=== PATIENT | female | born 1950 | race American Indian/Alaskan Native ===

== ENCOUNTER 2017-08-21 07:13 | Emergency (ER) | payer MEDICARE ==
[2017-08-21 07:33] VITALS: BP 134/77
--- NOTE | 2017-08-21 08:04 | XRay Report ---
ROUTINE CHEST, TWO VIEWS: HISTORY: Shortness of breath. The trachea, heart, mediastinal contour, lung bocanegra and bony thorax are unremarkable. IMPRESSION: No acute cardiopulmonary process identified.
[2017-08-21 08:09] LABS: Basophils % (Auto) 0.6 % (0.0-1.8); Eosinophils % (Auto) 1.3 % (0.0-4.3); Hematocrit 43.1 % (30.3-42.9); Hemoglobin 13.7 gm/dl (10.1-14.3); Mean Corpuscular HGB Conc 32 % (30-34); Mean Corpuscular Hemoglobin 28 pg (28-32); Mean Corpuscular Volume 88 fl (79-97); Platelet Count 250 K/mm3 (140-440); Red Blood Count 4.88 M/mm3 (3.65-5.03); Red Cell Distribution Width 15.1 % (13.2-15.2); White Blood Count 11.5 K/mm3 (4.5-11.0)
[2017-08-21 08:20] LABS: Anion Gap 20 mmol/L; BUN/Creatinine Ratio 17; Blood Urea Nitrogen 10 mg/dL (7-17); Calcium 10.1 mg/dL (8.4-10.2); Carbon Dioxide 22 mmol/L (22-30); Chloride 103.3 mmol/L (98-107); Glucose 170 mg/dL (65-100); Potassium 3.9 mmol/L (3.6-5.0); Sodium 141 mmol/L (137-145)
--- NOTE | 2017-08-21 11:41 | Emergency Department Report ---
HPI - General Chief Complaint: Dyspnea/Respdistress Time Seen by Provider: 08/21/17 10:35 - HPI HPI: Almanza 26 The patient is a 67-year-old female presenting with a chief complaint of shortness of breath. She states she began having an asthma attack last night it worsened severely this morning. Patient complains of severe shortness of breath and EMS was called. Patient was administered albuterol by EMS en route and she currently states she feels much better. Patient currently denies shortness of breath but states she has a sore throat. Patient did not believe she's been coughing but visited her at bedside states patient has been coughing while sleeping in the emergency department. Patient denies any history of fever. 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" - Surgical History Past Surgical History?: Yes Additional Surgical History: Knee replacement, Hernia repair, trach - Family History Family history: no significant - Social History Smoking Status: Never Smoker Substance Use Type: None - Medications Home Medications: Home Medications Medication Instructions Recorded Confirmed Last Taken Type Prednisone [predniSONE 10 mg 10 mg PO .TAPER #1 tab.ds.pk 08/21/17 Unknown Rx (6-Day Pack, 21 Tabs)] ED Review of Systems ROS: Stated complaint: PAM Other details as noted in HPI Constitutional: denies: fever Eyes: denies: eye pain ENT: throat pain Respiratory: cough, shortness of breath, wheezing Cardiovascular: denies: chest pain Gastrointestinal: denies: abdominal pain Genitourinary: denies: dysuria Neurological: denies: headache Physical Exam - Physical Exam Vital Signs: Vital Signs 08/21/17 08/21/17 07:26 09:40 Temperature 98.7 F Pulse Rate 102 H Respiratory 20 16 Rate Blood Pressure 134/77 O2 Sat by Pulse 97 100 Oximetry Physical Exam: GENERAL: The patient is well-developed well-nourished female lying on stretcher not appearing to be in acute distress. [] HEENT: Normocephalic. Atraumatic. Extraocular motions are intact. Patient has moist mucous membranes. Oropharynx clear NECK: Supple. No meningitic signs are noted. There is no stridor CHEST/LUNGS: Clear to auscultation. There is no respiratory distress noted. HEART/CARDIOVASCULAR: Regular. There is no tachycardia. There is no gallop rub or murmur. ABDOMEN: Abdomen is soft, nontender. Patient has normal bowel sounds. There is no abdominal distention. SKIN: There is no rash. There is trace bilateral lower extremity edema. There is no diaphoresis. NEURO: The patient is awake, alert, and oriented. The patient is cooperative. The patient has normal speech MUSCULOSKELETAL: There is no evidence of acute injury. ED Course Vital Signs 08/21/17 08/21/17 07:26 09:40 Temperature 98.7 F Pulse Rate 102 H Respiratory 20 16 Rate Blood Pressure 134/77 O2 Sat by Pulse 97 100 Oximetry ED Medical Decision Making - Lab Data Result diagrams: 08/21/17 07:49 08/21/17 07:49 Laboratory Tests 08/21/17 08/21/17 07:49 07:49 WBC 11.5 H RBC 4.88 Hgb 13.7 Hct 43.1 H MCV 88 MCH 28 MCHC 32 RDW 15.1 Plt Count 250 Lymph % (Auto) 10.2 L [place] % (Auto) 6.8 Eos % (Auto) 1.3 Baso % (Auto) 0.6 Lymph # 1.2 [place] # 0.8 Eos # 0.2 Baso # 0.1 Seg Neutrophils % 81.1 H Seg Neutrophils # 9.4 H Sodium 141 Potassium 3.9 Chloride 103.3 Carbon Dioxide 22 Anion Gap 20 BUN 10 Creatinine 0.6 L Estimated GFR > 60 BUN/Creatinine Ratio 17 Glucose 170 H Calcium 10.1 Troponin T < 0.010 - EKG Data -: EKG Interpreted by Me EKG shows normal: sinus rhythm Rate: normal - EKG Data When compared to previous EKG there are: previous EKG unavailable Interpretation: nonspecific ST-T wave dago (biphasic T-wave in lead aVL) - Radiology Data Radiology results: image reviewed (chest x-ray, lateral soft tissue neck x-ray) interpreted by me: Chest x-ray-no focal infiltrates, no pneumothorax Lateral soft tissue neck x-ray-no prevertebral swelling, no evidence of epiglottitis - Differential Diagnosis acute asthma exacerbation, pharyngitis, epiglottitis Critical care attestation.: If time is entered above; I have spent that time in minutes in the direct care of this critically ill patient, excluding procedure time. ED Disposition Clinical Impression: Acute asthma exacerbation, Shortness of breath Disposition: TO HOME OR SELFCARE Is pt being admited?: No Does the pt Need Aspirin: No Condition: Stable Instructions: Asthma (ED) Additional Instructions: Return to the emergency department immediately should you develop worsening symptoms, fever, inability to tolerate food or liquid or any other concerns. Prescriptions: Prednisone [predniSONE 10 mg (6-Day Pack, 21 Tabs)] 10 mg PO .TAPER #1 tab.ds.pk Referrals: PRIMARY CARE, [Primary Care Provider] - 3-5 Days Time of Disposition: 12:27
[2017-08-21] MEDS ORDERED: DELTASONE PO ONE (11:43)
--- NOTE | 2017-08-21 12:27 | XRay Report ---
AP AND LATERAL SOFT TISSUES OF THE NECK: History: Sore throat. The contour of the upper airway appears within normal limits. The epiglottis is not enlarged. No prevertebral soft tissue swelling is apparent. No mass density or foreign body is evident. IMPRESSION: Unremarkable exam.
== END 2017-08-21 12:31 | disposition home or self-care (01) ==
LOC: ED 07:13
DX: J45.901 Unspecified asthma with (acute) exacerbation (principal); I10 Essential (primary) hypertension; Z86.73 Personal history of transient ischemic attack (TIA), and cerebral infarction without residual deficits; Z96.659 Presence of unspecified artificial knee joint; Z91.041 Radiographic dye allergy status
CPT/HCPCS: 36415; 70360; 71020; 80048; 84484; 85025; 93005; 93010; 99284; J7512

== ENCOUNTER 2017-10-30 08:18 | Outpatient (CLI) | payer MEDICARE ==
--- NOTE | 2017-10-30 09:40 | Mammography Report ---
BONE DEXA:10/30/17 08:18:00 CLINICAL: Postmenopausal. No comparison. TECHNIQUE: Two site bone DEXA performed on an Hologic scanner. FINDINGS: The average BMD of the lumbar spine L1-L4 is 1.123g/cm squared with a T-score of -0.2 and a Z-score of +2.0. The average BMD of the left hip is 0.756g/cm squared with a T-score of -1.8 and a Z-score of by 0.7. IMPRESSION: 1. WHO classification: Normal with average fracture risk based on lumbar spine measurements. 2. WHO classification: Osteopenia with increased fracture risk based on left hip measurements. RECOMMENDATION: Clinical correlation and routine screening. DEFINITIONS: BMD = Bone Mineral Density T-score = BMD related to mean peak bone mass of young adult (mean expressed in Standard Deviation) Z-score = Age matched BMD expressed in SD World Health Organization (WHO) Diagnostic Criteria Normal T-score > -1 SD Osteopenia T-score between -1 and -2.4 SD Osteoporosis T-score -2.5 SD or below NOTE: BMD is not the only risk factor for fracture. One should also consider factors such as the patient's age, risk of falling, previous osteoporotic fracture, family history of osteoporotic fractures, current smoker, and low body weight. Z-scores are not calculated if >80 years of age.
== END 2017-10-30 08:19 | disposition home or self-care (01) ==
LOC: SPVWC 08:18
PROVIDERS: ATTEND Internal Medicine
DX: M85.88 Other specified disorders of bone density and structure, other site (principal); Z78.0 Asymptomatic menopausal state
CPT/HCPCS: 77080

== ENCOUNTER 2017-11-15 06:04 | Emergency (ER) | payer MEDICARE ==
--- NOTE | 2017-11-15 06:42 | Cat Scan Report ---
FINAL REPORT EXAM: CT HEAD/BRAIN WO CON HISTORY: rt sided weakness TECHNIQUE: CT imaging acquired through the head without intravenous contrast. Transaxial reformations are provided. PRIORS: None. FINDINGS: In the left thalamus on axial series 2, image 24 there is a 14 x 10 millimeter round hyperdense hemorrhage. Approximately 2-3 millimeters of [id number] midline shift at the level of the foramina of [place]. No herniation. No other acute intracranial hemorrhage. The ventricles, cisterns and sulci are otherwise within normal limits. Deep and subcortical white matter hypodensities are reflective of chronic microvascular angiopathy. Normal spherical shape of the globes. No significant abnormality involving the imaged portions of the paranasal sinuses and mastoid air cells. Hyperostosis frontalis. No skull or facial fracture visualized. IMPRESSION: Focal left thalamic hemorrhage measures up to 14 millimeters and is most commonly associated with hypertensive infarct. There is 2-3 millimeters of [id number] midline shift at the level of the foramina of [place]. No transtentorial or tonsillar herniation. Follow-up MRI with contrast is recommended. Dr. Hoyos discussed findings with Dr. Dexter at 0536 central Time on 11/15/2017 immediately following the examination.
[2017-11-15 06:53] LABS: Basophils # (Auto) 0.1 K/mm3 (0.0-0.1); Basophils % (Auto) 1.1 % (0.0-1.8); Eosinophils # (Auto) 0.3 K/mm3 (0.0-0.4); Eosinophils % (Auto) 3.1 % (0.0-4.3); Hematocrit 40.7 % (30.3-42.9); Hemoglobin 13.1 gm/dl (10.1-14.3); Lymphocytes # (Auto) 1.6 K/mm3 (1.2-5.4); Lymphocytes % (Auto) 17.5 % (13.4-35.0); Mean Corpuscular HGB Conc 32 % (30-34); Mean Corpuscular Hemoglobin 28 pg (28-32); Mean Corpuscular Volume 88 fl (79-97); Monocytes # (Auto) 0.7 K/mm3 (0.0-0.8); Monocytes % (Auto) 7.9 % (0.0-7.3); Platelet Count 232 K/mm3 (140-440); Red Blood Count 4.64 M/mm3 (3.65-5.03); Red Cell Distribution Width 14.3 % (13.2-15.2)
--- NOTE | 2017-11-15 06:56 | Emergency Department Report ---
ED Neuro Deficit HPI - General Chief Complaint: Weakness Stated Complaint: POSS CVA Time Seen by Provider: 11/15/17 06:52 Source: EMS Mode of arrival: Stretcher Limitations: No Limitations - History of Present Illness Initial Comments: 67-year-old female with a past medical history of previous CVA, asthma, hypertension, and "aneurysm in heart vein" presents to the hospital with complaints of right-sided weakness since 5 AM. Patient states woke up feeling normal with did try to ambulate just before 5 AM and noticed that her right leg was dragging. She also had tingling and numbness to her right hand and right periorbital area. Symptoms are constant. No pain reported. Patient compliant with blood pressure medication and aspirin 81 mg. 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 PMD: Dr. Jorge - Related Data Home Medications: Previous Rx's Medication Instructions Recorded Last Taken Type Prednisone [predniSONE 10 mg 10 mg PO .TAPER #1 tab.ds.pk 08/21/17 Unknown Rx (6-Day Pack, 21 Tabs)] Allergies/Adverse Reactions: Allergies Allergy/AdvReac Type Severity Reaction Status Date / Time iodine Allergy Hives Verified 08/21/17 07:26 ED Review of Systems ROS: Stated complaint: POSS CVA Other details as noted in HPI Comment: All other systems reviewed and negative Other: Constitutional: No fevers chills Eyes: No eye pain visual changes o ENT: No ear pain or throat pain Neck: Denies pain Respiratory: Denies cough wheezing shortness of breath Cardiovascular: Denies chest pain, palpitations, syncope GI: Denies abdominal pain, nausea, vomiting, diarrhea : Denies dysuria Musculoskeletal: Denies back pain, joint swelling Skin: Denies rash, lesions, erythema Neurologic: Denies headache Psychiatric: Denies suicidal ideation, hallucinations ED Past Medical Hx - Past Medical History Hx Hypertension: Yes Hx CVA: Yes Hx Asthma: Yes 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 Level of Consciousness: alert 1b. LOC Questions: answers correctly 1c. LOC Commands: performs tasks correctly 2. Best Gaze: normal 3. Visual: no visual loss 4. Facial Palsy: normal symmetrical movement 5b. Motor Arm Right: drift 5a. Motor Arm Left: no drift 6a. Motor Leg Left: no drift 6b. Motor Leg Right: drift 7. Limb Ataxia: absent 8. Sensory: normal 9. Best Language: no aphasia 10. Dysarthria: normal 11. Extinction/Inattention: no abnormality Total Score: 2 Stroke Severity: Minor Stroke - Other Other exam information: General: No limitations, patient is alert in no acute distress Head exam: Atraumatic, normocephalic Eyes exam: Normal appearance, pupils equal reactive to light, extraocular movements intact ENT: Moist mucous membrane, normal oropharynx Neck exam: Normal inspection, full range of motion, no meningismus nontender Respiratory exam: Clear to auscultation bilateral, no wheezes, rales, crackles Cardiovascular: Normal rate and rhythm, normal heart sounds Abdomen: Soft, nondistended, and nontender, with normal bowel sounds, no rebound, or guarding Extremity: Full range of motion normal inspection no deformity Back: Normal Inspection, full range of motion, no tenderness Neurologic: Alert, oriented x3, cranial nerves intact, see NIH stroke scale. GCS equals 15 Psychiatric: normal affect, normal mood Skin: Warm, dry, intact ED Course Vital Signs 11/15/17 11/15/17 11/15/17 06:20 06:26 06:32 Temperature 97.9 F Pulse Rate 70 Respiratory 20 20 Rate Blood Pressure 130/70 130/70 O2 Sat by Pulse 99 100 Oximetry 11/15/17 06:59 Temperature Pulse Rate Respiratory 20 Rate Blood Pressure O2 Sat by Pulse 98 Oximetry - Reevaluation(s) Reevaluation #1: 11/15/17 08:00 pt stable - Consultations Consultation #1: 11/15/17 07:02 Case d/w Dr Gonzalez teleneurologist. agree with transfer due to no neurosurgery coverage here Consultation #2: 11/15/17 07:15 call placed to [place] neurosurgery 11/15/17 07:39 Dr Soni (Neurosurgery) responded to page. Accepted pt to [facility] ICU 11/15/17 07:57 case d/w Dr Medina icu attending. accepted pt - Lab Data Result diagrams: 11/15/17 06:45 11/15/17 06:48 Lab Results 11/15/17 11/15/17 11/15/17 Range/Units 06:16 06:45 06:48 WBC 8.9 (4.5-11.0) K/mm3 RBC 4.64 (3.65-5.03) M/mm3 Hgb 13.1 (10.1-14.3) gm/dl Hct 40.7 (30.3-42.9) % MCV 88 (79-97) fl MCH 28 (28-32) pg MCHC 32 (30-34) % RDW 14.3 (13.2-15.2) % Plt Count 232 (140-440) K/mm3 Lymph % (Auto) 17.5 (13.4-35.0) % [place] % (Auto) 7.9 H (0.0-7.3) % Eos % (Auto) 3.1 (0.0-4.3) % Baso % (Auto) 1.1 (0.0-1.8) % Lymph # 1.6 (1.2-5.4) K/mm3 [place] # 0.7 (0.0-0.8) K/mm3 Eos # 0.3 (0.0-0.4) K/mm3 Baso # 0.1 (0.0-0.1) K/mm3 Seg Neutrophils % 70.4 H (40.0-70.0) % Seg Neutrophils # 6.3 (1.8-7.7) K/mm3 PT 12.1 L (12.2-14.9) Sec. INR 0.86 L (0.87-1.13) APTT 30.8 (24.2-36.6) Sec. Thrombin Time (15.1-19.6) Sec. Sodium (137-145) mmol/L Potassium (3.6-5.0) mmol/L Chloride (98-107) mmol/L Carbon Dioxide (22-30) mmol/L Anion Gap mmol/L BUN (7-17) mg/dL Creatinine (0.7-1.2) mg/dL Estimated GFR ml/min BUN/Creatinine Ratio % Glucose (65-100) mg/dL POC Glucose 142 H (70-105) Calcium (8.4-10.2) mg/dL Troponin T (0.00-0.029) ng/mL 11/15/17 11/15/17 Range/Units 06:48 06:48 WBC (4.5-11.0) K/mm3 RBC (3.65-5.03) M/mm3 Hgb (10.1-14.3) gm/dl Hct (30.3-42.9) % MCV (79-97) fl MCH (28-32) pg MCHC (30-34) % RDW (13.2-15.2) % Plt Count (140-440) K/mm3 Lymph % (Auto) (13.4-35.0) % [place] % (Auto) (0.0-7.3) % Eos % (Auto) (0.0-4.3) % Baso % (Auto) (0.0-1.8) % Lymph # (1.2-5.4) K/mm3 [place] # (0.0-0.8) K/mm3 Eos # (0.0-0.4) K/mm3 Baso # (0.0-0.1) K/mm3 Seg Neutrophils % (40.0-70.0) % Seg Neutrophils # (1.8-7.7) K/mm3 PT (12.2-14.9) Sec. INR (0.87-1.13) APTT (24.2-36.6) Sec. Thrombin Time 15.4 (15.1-19.6) Sec. Sodium 140 (137-145) mmol/L Potassium 4.1 (3.6-5.0) mmol/L Chloride 106.7 (98-107) mmol/L Carbon Dioxide 23 (22-30) mmol/L Anion Gap 14 mmol/L BUN 10 (7-17) mg/dL Creatinine 0.6 L (0.7-1.2) mg/dL Estimated GFR > 60 ml/min BUN/Creatinine Ratio 17 % Glucose 137 H (65-100) mg/dL POC Glucose (70-105) Calcium 9.5 (8.4-10.2) mg/dL Troponin T < 0.010 (0.00-0.029) ng/mL - EKG Data -: EKG Interpreted by Me EKG shows normal: sinus rhythm, axis (-30), QRS complexes (90), ST-T waves (no stemi/t wave) Rate: normal (63) When compared to previous EKG there are: no significant change (08/21/17) - Radiology Data Radiology results: report reviewed CT head: Focal left, Measuring up to 14 mm is mostly associated with hypertensive infarct. 2.3 mm of left to right midline shift at the level of the foramen of [place] - Medical Decision Making Patient has a left thalamic hemorrhagic stroke Patient last took aspirin 81 mg this a.m. GCS equals 15 Awaiting transport to [facility] Accepted by [facility] ICU attending and neurosurgeon - Differential Diagnosis cva, ich, tia, neuropathy Critical Care Time: No Critical care attestation.: If time is entered above; I have spent that time in minutes in the direct care of this critically ill patient, excluding procedure time. ED Disposition Clinical Impression: Thalamic hemorrhage with stroke, HTN (hypertension), Right sided weakness Disposition: DC/TX-70 ANOTHER TYPE HLTHCARE Is pt being admited?: No Condition: Stable Time of Disposition: 07:58 (accepted by [facility] [place])
[2017-11-15 07:04] LABS: INR 0.86 (0.87-1.13)
[2017-11-15 07:05] LABS: BUN/Creatinine Ratio 17; Blood Urea Nitrogen 10 mg/dL (7-17); Calcium 9.5 mg/dL (8.4-10.2); Hemolysis Index 39; Partial Thromboplastin Time 30.8 Sec. (24.2-36.6)
[2017-11-15 08:00] VITALS: BP 148/82
== END 2017-11-15 08:47 | disposition other institution (70) ==
LOC: ED 06:04
DX: I61.9 Nontraumatic intracerebral hemorrhage, unspecified (principal); I63.9 Cerebral infarction, unspecified; I10 Essential (primary) hypertension; J45.909 Unspecified asthma, uncomplicated; Z96.659 Presence of unspecified artificial knee joint; Z91.041 Radiographic dye allergy status
CPT/HCPCS: 36415; 70450; 80048; 82962; 84484; 85025; 85610; 85670; 85730; 93005; 93010

== ENCOUNTER 2018-11-08 08:00 | Emergency (ER) | payer MEDICARE ==
[2018-11-08] MEDS ORDERED: IBUPROFEN PO ONE (08:25)
[2018-11-08] MEDS ORDERED: NORCO 7.5/325 PO ONE (08:25)
[2018-11-08] MEDS ORDERED: ROBAXIN PO ONE (08:25)
[2018-11-08 09:06] LABS: Bilirubin,Urine NEG (Negative); Blood,Urine NEG (Negative); Color,Urine Yellow (Yellow); Mucus,Urine FEW /HPF; Protein,Urine <15 mg/dL mg/dL (Negative)
[2018-11-08] MEDS ORDERED: MORPHINE IV ONE (10:22)
[2018-11-08] MEDS ORDERED: NORMODYNE IV ONE ×2 (10:28→10:32)
[2018-11-08] MEDS: APRESOLINE IV ONE ×2 (10:47→10:48)
--- NOTE | 2018-11-08 11:12 | Vascular Lab Report ---
FINAL REPORT EXAM: VL VENOUS DUPLEX LE LT HISTORY: severe left groin pain into leg TECHNIQUE: Grayscale and color and spectral Doppler ultrasound imaging of the left lower extremity w as performed for the purposes of assessing for deep venous thrombosis. PRIORS: None. FINDINGS: No evidence of deep venous thrombosis is seen within the left common femoral through the posterior ti bial and peroneal veins. Normal compression and color flow is seen throughout the venous system of th e left lower extremity. Normal augmentation was seen. Incidentally the right common femoral and proxi mal superficial femoral veins are patent. IMPRESSION: Negative for left lower extremity deep venous thrombosis.
--- NOTE | 2018-11-08 11:53 | XRay Report ---
FINAL REPORT EXAM: XR PELVIS 1-2V HISTORY: left groin pain TECHNIQUE: AP pelvis radiograph. PRIORS: None. FINDINGS: No fracture. No dislocation. There is diffuse osteopenia. There is severe bilateral hip joint space loss with subchondral sclerosi s and peripheral osteophyte formations. A lobular calcified lesion is seen within the pelvis. No soft tissue abnormality. IMPRESSION: 1. Severe osteoarthritis of the hips, left worse than right. 2. Calcified lesion in the pelvis likely represents a calcifying fibroid.
[2018-11-08] MEDS ORDERED: ULTRAM PO ONE (11:59)
--- NOTE | 2018-11-08 12:19 | Emergency Department Report ---
ED Extremity Problem HPI - General Chief complaint: Pain General Stated complaint: (L) LEG PAIN Time Seen by Provider: 11/08/18 08:25 Source: patient Mode of arrival: Stretcher Limitations: No Limitations - History of Present Illness Initial comments: Patient is a 68-year-old [place] female who is presenting with left groin pain. Patient states that she had physical therapy yesterday and did well and denies any trauma or direct injury. Patient states approximately 2 AM this morning she woke up to intense pain in the left inguinal area that is radiating down the thigh to the level of the knee. The patient states is worse with movement and is a 10 out of 10 in severity. Patient states the pain is hurting so bad that she now has a headache as well. Patient states as a throbbing aching pain. Patient denies any urinary symptoms back pain fevers chills at this time. Severity scale (0 -10): 10 - Related Data Previous Rx's Medication Instructions Recorded Last Taken Type Prednisone [predniSONE 10 mg 10 mg PO .TAPER #1 tab.ds.pk 08/21/17 Unknown Rx (6-Day Pack, 21 Tabs)] oxyCODONE /ACETAMINOPHEN [Percocet 1 tab PO Q6HR PRN #12 tablet 11/08/18 Unknown Rx 5/325] Allergies Allergy/AdvReac Type Severity Reaction Status Date / Time iodine Allergy Hives Verified 11/08/18 08:27 ED Review of Systems ROS: Stated complaint: (L) LEG PAIN Other details as noted in HPI Comment: All other systems reviewed and negative ED Past Medical Hx - Past Medical History Previous Medical History?: Yes Hx Hypertension: Yes Hx CVA: Yes Hx Diabetes: Yes Hx Asthma: Yes 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" - Surgical History Past Surgical History?: Yes Additional Surgical History: Knee replacement, Hernia repair, trach - Social History Smoking Status: Never Smoker Substance Use Type: None - Medications Home Medications: Home Medications Medication Instructions Recorded Confirmed Last Taken Type Prednisone [predniSONE 10 mg 10 mg PO .TAPER #1 tab.ds.pk 08/21/17 Unknown Rx (6-Day Pack, 21 Tabs)] oxyCODONE /ACETAMINOPHEN [Percocet 1 tab PO Q6HR PRN #12 tablet 11/08/18 Unknown Rx 5/325] ED Physical Exam - General Limitations: No Limitations General appearance: alert, in no apparent distress - Head Head exam: Present: atraumatic, normocephalic - Eye Eye exam: Present: normal appearance - ENT ENT exam: Present: mucous membranes moist - Neck Neck exam: Present: normal inspection - Respiratory Respiratory exam: Present: normal lung sounds bilaterally. Absent: respiratory distress, wheezes, rales, rhonchi - Cardiovascular Cardiovascular Exam: Present: regular rate, normal rhythm. Absent: systolic murmur, diastolic murmur, rubs, gallop - GI/Abdominal GI/Abdominal exam: Present: soft, normal bowel sounds. Absent: distended, tenderness, guarding, rebound, rigid - Extremities Exam Extremities exam: Present: normal inspection, tenderness (LEFT INGINAL PAIN ON PALPATION) - Back Exam Back exam: Present: normal inspection - Neurological Exam Neurological exam: Present: alert, oriented X3 - Psychiatric Psychiatric exam: Present: normal affect, normal mood - Skin Skin exam: Present: warm, dry, intact, normal color. Absent: rash ED Course Vital Signs 11/08/18 11/08/18 11/08/18 08:24 10:27 10:48 Temperature 98.1 F Pulse Rate 90 92 H 92 H Respiratory 20 13 Rate Blood Pressure 171/94 181/93 Blood Pressure 171/94 181/93 [Right] O2 Sat by Pulse 96 95 Oximetry ED Medical Decision Making - Radiology Data Ultrasound of the left lower she really shows no acute DVT. X-ray of the pelvis shows severe osteoarthritis of the hips, left worse than right. Patient also has a calcified lesion in the pelvis likely representing a calcified fibroid. There is no acute fracture present. - Medical Decision Making Patient's pain was slightly improved with pain management here in the emergency department. Patient instructed to use ice therapy for the next several days on the left groin and patient be discharged home. Critical care attestation.: If time is entered above; I have spent that time in minutes in the direct care of this critically ill patient, excluding procedure time. ED Disposition Clinical Impression: Arthralgia of hip, left Disposition: DC-01 TO HOME OR SELFCARE Is pt being admited?: No Does the pt Need Aspirin: No Condition: Stable Instructions: Arthralgia (ED) Referrals: PRIMARY CARE, [Primary Care Provider] - 3-5 Days Time of Disposition: 12:19
[2018-11-08 12:20] VITALS: BP 171/94
== END 2018-11-08 12:47 | disposition home or self-care (01) ==
LOC: ED 08:00
DX: M25.552 Pain in left hip (principal); R10.30 Lower abdominal pain, unspecified; R51 Headache; I10 Essential (primary) hypertension; E11.9 Type 2 diabetes mellitus without complications; J45.909 Unspecified asthma, uncomplicated; Z86.73 Personal history of transient ischemic attack (TIA), and cerebral infarction without residual deficits; Z91.041 Radiographic dye allergy status
CPT/HCPCS: 72170; 81001; 93971; 96374; 96375; 99285; J2270

== ENCOUNTER 2022-04-01 10:17 | Emergency (ER) | payer MEDICARE ==
[2022-04-01] MEDS ORDERED: cefTRIAXone/NS 1 GM/50 ML 1 GM/50 ML BAG IV ONE (11:39)
--- NOTE | 2022-04-01 11:45 | Emergency Department Report ---
ED Lower Extremity HPI - General Chief Complaint: Extremity Problem,Nontraumatic Stated Complaint: LOWER LEG PITTING EDEMA Time Seen by Provider: 04/01/22 10:58 Source: patient, EMS Mode of arrival: Stretcher Limitations: No Limitations - History of Present Illness Initial Comments: 71-year-old female who presents with left lower extremity discomfort that started couple of days ago after a scratch causing an abrasion to the lower part of the leg. Patient denies any fever but chills. Patient also reports some pain with warmth from this same leg. No other modifying or associated factors reported. - Related Data Previous Rx's Medication Instructions Recorded Last Taken Type Prednisone [predniSONE 10 mg 10 mg PO .TAPER #1 tab.ds.pk 08/21/17 Unknown Rx (6-Day Pack, 21 Tabs)] oxyCODONE /ACETAMINOPHEN [Percocet 1 tab PO Q6HR PRN #12 tablet 11/08/18 Unknown Rx 5/325] cephALEXin [Keflex] 500 mg PO Q12HR 10 Days #20 cap NS 04/01/22 Unknown Rx Allergies Allergy/AdvReac Type Severity Reaction Status Date / Time iodine Allergy Hives Verified 04/01/22 10:19 ED Review of Systems ROS: Stated complaint: LOWER LEG PITTING EDEMA Other details as noted in HPI Comment: All other systems reviewed and negative Constitutional: chills Musculoskeletal: myalgia Skin: other (abrasion ) ED Past Medical Hx - Past Medical History Hx Hypertension: Yes Hx CVA: Yes Hx Diabetes: Yes Hx Asthma: Yes 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" - Surgical History Additional Surgical History: Knee replacement, Hernia repair, trach - Social History Smoking Status: Never Smoker Substance Use Type: None - Medications Home Medications: Home Medications Medication Instructions Recorded Confirmed Last Taken Type Prednisone [predniSONE 10 mg 10 mg PO .TAPER #1 tab.ds.pk 08/21/17 Unknown Rx (6-Day Pack, 21 Tabs)] oxyCODONE /ACETAMINOPHEN [Percocet 1 tab PO Q6HR PRN #12 tablet 11/08/18 Unknown Rx 5/325] cephALEXin [Keflex] 500 mg PO Q12HR 10 Days #20 cap NS 04/01/22 Unknown Rx ED Physical Exam - General Limitations: No Limitations General appearance: alert, in no apparent distress - Eye Pupils: Present: normal accommodation - ENT ENT exam: Present: normal exam, normal orophraynx, mucous membranes moist - Neck Neck exam: Present: normal inspection, full ROM. Absent: tenderness - Respiratory Respiratory exam: Present: normal lung sounds bilaterally. Absent: respiratory distress, accessory muscle use - Cardiovascular Cardiovascular Exam: Present: regular rate, normal rhythm, normal heart sounds - GI/Abdominal GI/Abdominal exam: Present: soft, normal bowel sounds. Absent: distended, tenderness - External exam: Present: erythema, other (left lower abrasion about 1 cm with warmth and surrounding erythema) - Back Exam Back exam: Absent: tenderness - Neurological Exam Neurological exam: Present: alert, oriented X3 - Psychiatric Psychiatric exam: Present: normal affect, normal mood - Skin Skin exam: Present: warm, abrasion (left lower abrasion about 1 cm with warmth and surrounding erythema) ED Course Vital Signs 04/01/22 04/01/22 04/01/22 10:18 11:15 11:31 Temperature 98 F Pulse Rate 69 67 67 Respiratory 18 16 11 L Rate Blood Pressure 120/69 Blood Pressure 143/92 [Left] O2 Sat by Pulse 98 96 95 Oximetry 04/01/22 04/01/22 04/01/22 11:45 12:01 12:15 Temperature Pulse Rate 63 72 64 Respiratory 20 12 17 Rate Blood Pressure 120/69 120/69 120/69 Blood Pressure [Left] O2 Sat by Pulse 96 97 96 Oximetry - Reevaluation(s) Reevaluation #1: 04/01/22 11:45 here with left lower leg pain and noted with left lower abrasion about 1 cm with warmth and surrounding erythema-=-this is consistent with cellulitis however could not rule out DVT considering unilaterality -- so d-dimer ordered with routine CBC and CMP-- and in the meantime given Rocephin 1 g while waiting for labs-- Reevaluation #2: 04/01/22 13:13 I called and asked labs for any updates on the d-dimer and was told it will be done and be ready soon Reevaluation #3: 04/01/22 13:14 Labs is noted to be wnl with no sign of systemic infection--this is likely simple cellulitis -- so will discharge home on Keflex for the next 10 days with close follow up with PCP -- D-dimer still pending at this time Reevaluation #4: 04/01/22 15:23 Noted with elevated d-dimer and doppler ordered but will have patient discharge ready to have Dr Myles follow up on the result and clear if negative-- ED Lower Extremity MDM - Lab Data Result diagrams: 04/01/22 11:59 04/01/22 11:59 Critical care attestation.: If time is entered above; I have spent that time in minutes in the direct care of this critically ill patient, excluding procedure time. ED Disposition Clinical Impression: Cellulitis of extremity Qualifiers: Site of cellulitis of extremity: lower extremity Laterality: left Qualified Code(s): L03.116 - Cellulitis of left lower limb Disposition: HOME / SELF CARE / HOMELESS Is pt being admited?: No Does the pt Need Aspirin: No Condition: Stable Instructions: Cellulitis, Adult, [id number] Additional Instructions: Take and complete your antibiotic Keflex as prescribed It is okay to take Tylenol every 6-8 hours as needed for pain Call and schedule a follow up with your doctor in 3-5 days for progress Call or return to ED if your symptoms worsen while you are on the antibiotics treatment Prescriptions: cephALEXin [Keflex] 500 mg PO Q12HR 10 Days #20 cap NS Referrals: RC BANG MD [Referring] - 3-5 Days Time of Disposition: 15:25
[2022-04-01 12:22] LABS: Basophils % (Auto) 0.4 % (0.0-1.8); Eosinophils % (Auto) 9.3 % (0.0-4.3); Hematocrit 36.7 % (30.3-42.9); Hemoglobin 12.4 gm/dl (10.1-14.3); Lymphocytes # (Auto) 1.6 K/mm3 (1.2-5.4); Mean Corpuscular HGB Conc 34 % (30-34); Mean Corpuscular Volume 87 fl (79-97); Monocytes # (Auto) 0.8 K/mm3 (0.0-0.8); Monocytes % (Auto) 6.7 % (0.0-7.3); Platelet Count 233 K/mm3 (140-440); Red Blood Count 4.21 M/mm3 (3.65-5.03); Red Cell Distribution Width 14.7 % (13.2-15.2)
[2022-04-01 12:33] LABS: Alanine Aminotransferase 11 units/L (7-56); Albumin 3.5 g/dL (3.9-5); BUN/Creatinine Ratio 18; Blood Urea Nitrogen 16 mg/dL (7-17); Hemolysis Index 13
[2022-04-01] MEDS ORDERED: MORPHINE 2 MG/1 ML INJ IV ONE (13:42)
[2022-04-01] MEDS ORDERED: ONDANSETRON 4 MG/2 ML INJ IV ONE (15:45)
[2022-04-01] MEDS ORDERED: MORPHINE 4 MG/1 ML INJ IV ONE (15:45)
[2022-04-01 16:01] VITALS: BP 161/114
--- NOTE | 2022-04-01 16:26 | Vascular Lab Report ---
DUPLEX DOPPLER LOWER EXTREMITY VEINS, LEFT INDICATION / CLINICAL INFORMATION: elevated d-dimer with left lower leg pain. TECHNIQUE: Duplex doppler imaging was performed through the veins of the left lower extremity using v enous compression and other maneuvers. COMPARISON: None available. FINDINGS: LEFT COMMON FEMORAL VEIN: Negative. LEFT FEMORAL VEIN: Negative. LEFT POPLITEAL VEIN: Negative. LEFT CALF VEINS: Negative. ADDITIONAL FINDINGS: None. IMPRESSION: 1. No sonographic evidence for DVT in the left lower extremity. Signer Name: Clemente Pena MD Signed: 04/01/2022 4:22 PM Workstation Name: [id number]
== END 2022-04-01 15:50 | disposition home or self-care (01) ==
LOC: ED 10:17
DX: L03.116 Cellulitis of left lower limb (principal); I10 Essential (primary) hypertension; Z86.73 Personal history of transient ischemic attack (TIA), and cerebral infarction without residual deficits; E11.9 Type 2 diabetes mellitus without complications; J45.909 Unspecified asthma, uncomplicated; Z98.890 Other specified postprocedural states; Z91.041 Radiographic dye allergy status
CPT/HCPCS: 36415; 80053; 85025; 85379; 93971; 96365; 96375; 96376; 99285; J0696; J2270; J2405